=== PATIENT | female | born 1950 | race Caucasian/White ===

== ENCOUNTER → 2016-11-29 13:40 | Outpatient (CLI) | payer MEDICARE, OTHER | END | disposition home or self-care (01) | LOC: D.CT 13:40 | DX: R10.30 Lower abdominal pain, unspecified (principal) ==

== ENCOUNTER 2017-01-09 08:58 | Outpatient (CLI) | payer MEDICARE, OTHER | END 2017-01-09 11:10 | LOC: D.MAMMO 08:58 | DX: Z12.31 Encounter for screening mammogram for malignant neoplasm of breast (principal) ==

== ENCOUNTER 2018-05-18 07:11 | Emergency (ER) | payer MEDICARE, OTHER | END 2018-05-18 07:24 | disposition home or self-care (01) | LOC: D.ER 07:11 | DX: R21 Rash and other nonspecific skin eruption (principal) ==

== ENCOUNTER 2018-08-08 09:59 | Emergency (ER) | payer MEDICARE, BC ==
[~2018-08-08] VITALS: Ht 154.9 cm; Wt 84.1 kg
[2018-08-08 10:17] VITALS: Ht 154.9 cm; Wt 84.1 kg
[2018-08-08] MEDS ORDERED: ALDOMET250 MG PO (10:19)
[2018-08-08] MEDS ORDERED: BYSTOLIC10 MG PO (10:19)
[2018-08-08] MEDS ORDERED: PRINIVIL20 MG PO (10:19)
[2018-08-08] MEDS ORDERED: COZAAR100 MG PO (10:20)
[2018-08-08] MEDS ORDERED: ALENDRONATE SOD40 MG PO (10:20)
[2018-08-08] MEDS ORDERED: CALCIUM 500 +1 EAC3 PO (10:20)
[2018-08-08] MEDS ORDERED: PRAVASTATIN SOD10 MG PO (10:21)
[2018-08-08] MEDS ORDERED: CORICIDIN HBP (10:23)
[2018-08-08 11:54] VITALS: BP 126/78
== END 2018-08-08 11:55 ==
LOC: D.ER 09:59
DX: S09.90XA Unspecified injury of head, initial encounter (principal); W18.30XA Fall on same level, unspecified, initial encounter; Y93.89 Activity, other specified; Y92.019 Unspecified place in single-family (private) house as the place of occurrence of the external cause

== ENCOUNTER 2020-10-10 19:30 | Outpatient (CLI) | payer MEDICARE, BC ==
[2018-08-08 10:17] VITALS: BMI 35.0
[~2020-10-10 19:30] MED LIST: ALDOMET250 MG PO; ALENDRONATE SOD40 MG PO; BYSTOLIC10 MG PO; CALCIUM 500 +1 EAC3 PO; CORICIDIN HBP; COZAAR100 MG PO; PRAVASTATIN SOD10 MG PO; PRINIVIL20 MG PO
== END 2020-10-10 23:59 | disposition home or self-care (01) ==
LOC: D.MAMMO 19:30
PROVIDERS: ATTEND Family Medicine
DX: Z12.31 Encounter for screening mammogram for malignant neoplasm of breast (principal)